=== PATIENT | female | born 1940 | race Caucasian/White ===

== ENCOUNTER 2016-10-03 16:08 | Inpatient (IN) | payer MEDICAID ==
[~2016-10-03 16:08] MED LIST: ACETAMINOPHEN650 MG PR; ALDACTONE25 M1 PO; ARTIFICIAL TEAR15 M8 OP; ATIVAN0.5 M1 PO; ATORVASTATIN CA40 M1 PO; ATORVASTATIN CA80 M1 PO; BISCOLAX10 MG PR; CALCITRATE + V1 EAC1 PO; CITRACAL + D E1 EAC1 PO; DEX4 GLUCOSE4 GM PO; DICLOFENAC SODI75 M2 PO; DILTIAZEM 24HR240 M3 PO; DIOVAN320 M1 PO; FEVERALL325 MG RC; FIBER-LAX625 M1 PO; FIBER625 M2 PO; FLEET ENEMA133 ML PR; FUROSEMIDE40 M2 PO; GAS RELIEF125 M4 PO; GLUCAGON HCL1 MG SC; HUMALOG MI SC; HUMALOG MI100 UNITS1 SC; HYDRALAZINE HCL50 M1 PO; ISOSORBIDE MONO20 M1 PO; K-TAB ER20 ME1 PO; LASIX40 M1 PO; LOPRESSOR100 M1 PO; MAALOX ADVANCE770 ML PO; MAALOX MAXIMUM355 M1 PO; MI ACID PO; MILK OF MAGNESIA PO; MIRALAX17 G2 PO; MUCINEX600 M1 PO; OLANZAPINE ODT15 MG PO; POLYETHYLENE G255 G1 PO; POTASSIUM CHLO20 ME3 PO; QUETIAPINE FUM100 M1 PO; QUETIAPINE FUM200 M1 PO; SENNA-DOCUSATE1 EAC1 PO; SENNA8.6 M3 PO; SEROQUEL100 M2 PO; SERTRALINE HCL100 M5 PO; TYLENOL325 M2 PO; ULTRAM50 M1 PO; XARELTO15 M1 PO; ZOLOFT100 M1 PO; ZYPREXA15 M1 PO
[2016-10-03] MEDS ORDERED: TYLENOL325 M2 PO ×2 (16:13→16:22)
[2016-10-03] MEDS ORDERED: ARTIFICIAL TEAR1512 OP (16:14)
[2016-10-03] MEDS ORDERED: LIPITOR80 M1 PO (16:14)
[2016-10-03] MEDS ORDERED: CALCITRATE + V1 EAC1 PO (16:14)
[2016-10-03] MEDS ORDERED: CARDIZEM CD240 M1 PO (16:15)
[2016-10-03] MEDS ORDERED: FIBER-LAX625 M1 PO (16:15)
[2016-10-03] MEDS ORDERED: HYDRALAZINE HCL50 M1 PO (16:16)
[2016-10-03] MEDS ORDERED: ISOSORBIDE MONO20 M1 PO (16:16)
[2016-10-03] MEDS ORDERED: LASIX40 M1 PO (16:16)
[2016-10-03] MEDS ORDERED: MILK OF MAGNESIA PO ×2 (16:17→16:28)
[2016-10-03] MEDS ORDERED: LOPRESSOR50 M1 PO (16:17)
[2016-10-03] MEDS ORDERED: POTASSIUM CHLO20 ME3 PO (16:18)
[2016-10-03] MEDS ORDERED: MACROBID 100 M100 M1 PO (16:18)
[2016-10-03] MEDS ORDERED: MIRALAX17 G2 PO (16:18)
[2016-10-03] MEDS ORDERED: QUETIAPINE FUM100 M1 PO (16:19)
[2016-10-03] MEDS ORDERED: ALDACTONE25 M1 PO (16:20)
[2016-10-03] MEDS ORDERED: SENNA-DOCUSATE1 EAC1 PO (16:20)
[2016-10-03] MEDS ORDERED: QUETIAPINE FUM200 M1 PO (16:20)
[2016-10-03] MEDS ORDERED: ULTRAM50 M1 PO (16:21)
[2016-10-03] MEDS ORDERED: VALSARTAN320 MG PO (16:21)
[2016-10-03] MEDS ORDERED: ATIVAN0.5 M1 PO (16:21)
[2016-10-03] MEDS ORDERED: XARELTO15 M1 PO (16:21)
[2016-10-03] MEDS ORDERED: ZYPREXA20 M1 PO (16:22)
[2016-10-03] MEDS ORDERED: ZOLOFT100 M1 PO (16:22)
[2016-10-03] MEDS ORDERED: DICLOFENAC SODI75 M2 PO (16:24)
[2016-10-03] MEDS ORDERED: GUAIFENESIN ER600 MG PO (16:26)
[2016-10-03] MEDS ORDERED: MI ACID PO (16:26)
[2016-10-03] MEDS ORDERED: MAALOX MAXIMUM355 M1 PO (16:27)
[2016-10-03] MEDS ORDERED: GLUCOSE4 GM CH ×2 (16:34→16:37)
[2016-10-03] MEDS ORDERED: HUMALOG MI100 UNIT/4 SC ×2 (16:37→16:38)
[2016-10-03] MEDS ORDERED: GLUCAGON HCL1 MG IM (16:39)
[2016-10-03] MEDS ORDERED: [UNRECOGNIZED DRUG - OTHER] TP (16:39)
[2016-10-03] MEDS ORDERED: FLEET ENEMA133 ML PR (16:40)
[2016-10-03] MEDS ORDERED: BISCOLAX10 MG PR (16:40)
[2016-10-03] MEDS ORDERED: ACETAMINOPHEN650 MG PR (16:40)
[2016-10-03 17:02] LABS: BASO % 0.2 % (0-2); IMMATURE GRANULOCYTES ABSOLUTE 0.03 tho/cmm (0-0.03); IMMATURE GRANULOCYTES PERCENT 0.5 % (0-0.3); INR 1.9 INR (0.9-1.1); LYMPH % 14.9 % (20-45); MCV (MEAN CELL VOLUME) 78.3 fl (82.0-96.0); MEAN PLATELET VOLUME 10.8 cmc (9.4-12.4); MONO % 8.6 % (0-12); MONOCYTE ABSOLUTE COUNT 0.6 tho/cmm (0.0-1.2); NEUTROPHIL ABSOLUTE COUNT 4.9 tho/cmm (1.6-8.0); NEUTROPHIL-AUTOMATED 4.9 tho/cmm (1.6-8.0); NEUTROPHILS % 75.8 % (40-80); PLATELET COUNT 167 tho/cmm (150-450); RED BLOOD COUNT 2.03 mil/cmm (4.00-5.20); RED CELL DISTRIBUTION WIDTH 17.8 % (12.4-16.4); WHITE BLOOD COUNT 6.5 tho/cmm (4.0-10.0)
[2016-10-03 17:05] LABS: MCH (MEAN CORPUSCULAR HGB) 23.6 pg (28.0-32.0); MCHC MEAN CORPUSCULAR HGB CONC 30.2 % (32.0-36.0)
[2016-10-03 17:13] LABS: HCT-HEMATOCRIT 15.9 % (34.0-49.0); HGB-HEMOGLOBIN 4.8 gm/dl (12.0-15.5)
[2016-10-03 17:19] LABS: ALB/GLOB RATIO 1.1 (0.8-2.0); ALBUMIN 3.1 g/dl (3.5-5.0); ALKALINE PHOSPHATASE 49 U/L (33-138); ALT/SGPT 21 U/L (12-78); ANION GAP 17 mmol/L (0-20); AST/SGOT 24 U/L (10-40); BILIRUBIN,TOTAL 0.3 mg/dl (0-1.5); BLOOD UREA NITROGEN 51 mg/dl (6-24); CALCIUM 8.6 mg/dl (8.5-10.5); CARBON DIOXIDE-VENOUS 25 mmol/L (22-32); CHLORIDE 99 mmol/l (96-110); CREATININE 1.69 mg/dl (0.50-1.10); GLUCOSE 197 mg/dL (70-110); LIPASE 164 U/L (73-393); MAGNESIUM 2.7 mg/dl (1.8-2.6); POTASSIUM 5.8 mmol/L (3.7-5.1); SODIUM 135 mmol/L (135-145); eGFR VALUE FOR BLACK 33 mL/Min
[2016-10-03 22:30] LABS: MCV (MEAN CELL VOLUME) 78.1 fl (82.0-96.0); RED CELL DISTRIBUTION WIDTH 16.9 % (12.4-16.4)
[2016-10-03 22:32] LABS: HCT-HEMATOCRIT 17.8 % (34.0-49.0); HGB-HEMOGLOBIN 5.6 gm/dl (12.0-15.5)
[2016-10-03 22:40] LABS: ANION GAP 14 mmol/L (0-20); BLOOD UREA NITROGEN 50 mg/dl (6-24); CALCIUM 8.3 mg/dl (8.5-10.5); CARBON DIOXIDE-VENOUS 26 mmol/L (22-32); CHLORIDE 100 mmol/l (96-110); CREATININE 1.45 mg/dl (0.50-1.10); GLUCOSE 215 mg/dL (70-110); SODIUM 135 mmol/L (135-145); eGFR VALUE FOR BLACK 40 mL/Min
[2016-10-03 22:43] LABS: POTASSIUM 4.6 mmol/L (3.7-5.1)
[2016-10-04 04:06] LABS: INR 1.6 INR (0.9-1.1); PROTHROMBIN TIME 18.7 SECONDS (9.0-13.6)
[2016-10-04 04:13] LABS: ANION GAP 13 mmol/L (0-20); BLOOD UREA NITROGEN 47 mg/dl (6-24); CARBON DIOXIDE-VENOUS 25 mmol/L (22-32); CHLORIDE 102 mmol/l (96-110); CREATININE 1.45 mg/dl (0.50-1.10); GLUCOSE 194 mg/dL (70-110); POTASSIUM 4.3 mmol/L (3.7-5.1); SODIUM 136 mmol/L (135-145); eGFR VALUE FOR BLACK 40 mL/Min
[2016-10-04 04:20] LABS: BASO % 0.2 % (0-2); HGB-HEMOGLOBIN 6.6 gm/dl (12.0-15.5); IMMATURE GRANULOCYTES ABSOLUTE 0.02 tho/cmm (0-0.03); IMMATURE GRANULOCYTES PERCENT 0.3 % (0-0.3); LYMPH % 16.9 % (20-45); LYMPH ABSOLUTE COUNT 1.1 tho/cmm (0.8-4.5); MCH (MEAN CORPUSCULAR HGB) 24.9 pg (28.0-32.0); MCV (MEAN CELL VOLUME) 78.1 fl (82.0-96.0); MEAN PLATELET VOLUME 10.6 cmc (9.4-12.4); MONO % 14.4 % (0-12); MONOCYTE ABSOLUTE COUNT 0.9 tho/cmm (0.0-1.2); NEUTROPHIL ABSOLUTE COUNT 4.4 tho/cmm (1.6-8.0); NEUTROPHIL-AUTOMATED 4.4 tho/cmm (1.6-8.0); NEUTROPHILS % 68.2 % (40-80); PLATELET COUNT 126 tho/cmm (150-450); RED BLOOD COUNT 2.65 mil/cmm (4.00-5.20); RED CELL DISTRIBUTION WIDTH 16.3 % (12.4-16.4); WHITE BLOOD COUNT 6.4 tho/cmm (4.0-10.0)
[2016-10-04 04:28] LABS: HCT-HEMATOCRIT 20.7 % (34.0-49.0); MCHC MEAN CORPUSCULAR HGB CONC 31.9 % (32.0-36.0)
[2016-10-04 15:48] LABS: HGB-HEMOGLOBIN 7.3 gm/dl (12.0-15.5); MCV (MEAN CELL VOLUME) 81.9 fl (82.0-96.0); RED CELL DISTRIBUTION WIDTH 17.6 % (12.4-16.4)
[2016-10-04 15:49] LABS: HCT-HEMATOCRIT 22.7 % (34.0-49.0)
--- NOTE | 2016-10-04 19:00 | NUR ---
0830 RESTLESS @ TIMES AND TRIES TO GET OUT OF BED, YELLS FOR HELP. Preston RALPH APRN HERE, ORDERS RECIEVED. PHYSICAL THERAPY HERE AND DANGLES/STANDS PATIENT. BACK TO BED. AM SCHEDULED ATIVAN AND SEROQUEL GIVEN. 0915 ENDOSCOPY AND ANESTHESIA HERE FOR EGD. PATIENT ANXIOUS AND AGITATED- CALMS WITH RE-ORIENTATION AND REDIRECTION. 0945 DR. AGEE HERE-EGD DONE UNDER MAC ANESTHESIA.TOLERATES PROCEDURE WELL WITH NO CHANGE IN VS. 1030 RESTLESS AND TRIES TO GET OUT OF BED. CALMS WITH BATH BEING GIVEN.DR. RILEY HERE, ORDERS RECIEVED. 1130 HAS BEEN DOSING FOR SHORT INTERVALS. AWAKE AND AGITATED, WANTS OUT OF BED. RESP. MORE LABORED WITH AGITATION. WON'T LEAVE O2 ON. UP TO CHAIR WITH 2 ASSIST. TAKES CLEAR LIQUIDS WELL. PRBC INFUSING. 1400 YELLING FOR HELP AND TRIES TO GET OUT OF CHAIR. BACK TO BED 1630 RESP. RATE INCREASED AND WORK OF BREATHING INCREASED WITH EXP. WHEEZE WITH AGITATION. INCREASING ANXIOUS AND AGITATION, UNABLE TO REORIENT FOR ANY LENGTH OF TIME. 1715 CALLED CONDITION UPDATE, COMES TO SEE PATIENT AND ORDERS RECIEVED. 1735 LASIX 20 MG IVP GIVEN AND RESP. THERAPY HERE TO DO AEROSOL. 1830 PATIENT INCREASING AGITATION/UNCOOPERATIVE. TRIES TO GET OUT OF BED AND YELLING. RESP. EFFORT INCREASED. DR. RILEY HERE AND ORDERS RECIEVED
[2016-10-04 22:10] LABS: ABG CO2 ARTERIAL 25 mmol/L (21-27); ARTERIAL BLD GAS O2 SATURATION 96 % (95-98); ARTERIAL BLOOD GAS PCO2 52 mmHg (32-45); ARTERIAL PO2 92 mmHg (70-100); BICARBONATE 23 mmol/L (21-28); BLOOD GAS BASE EXCESS -3 mM/L (-/+3); PH 7.27 Units (7.35-7.45)
[2016-10-04 22:19] LABS: MCV (MEAN CELL VOLUME) 82.7 fl (82.0-96.0); RED CELL DISTRIBUTION WIDTH 17.3 % (12.4-16.4)
[2016-10-04 22:29] LABS: HCT-HEMATOCRIT 29.2 % (34.0-49.0); HGB-HEMOGLOBIN 9.2 gm/dl (12.0-15.5)
[2016-10-05 00:22] LABS: ABG CO2 ARTERIAL 25 mmol/L (21-27); ARTERIAL BLD GAS O2 SATURATION 96 % (95-98); ARTERIAL BLOOD GAS PCO2 44 mmHg (32-45); ARTERIAL PO2 78 mmHg (70-100); BICARBONATE 24 mmol/L (21-28); BLOOD GAS BASE EXCESS -2 mM/L (-/+3); PH 7.34 Units (7.35-7.45)
[2016-10-05 05:03] LABS: BASO % 0.2 % (0-2); HCT-HEMATOCRIT 26.1 % (34.0-49.0); HGB-HEMOGLOBIN 8.3 gm/dl (12.0-15.5); IMMATURE GRANULOCYTES ABSOLUTE 0.02 tho/cmm (0-0.03); IMMATURE GRANULOCYTES PERCENT 0.4 % (0-0.3); LYMPH % 4.2 % (20-45); LYMPH ABSOLUTE COUNT 0.2 tho/cmm (0.8-4.5); MCH (MEAN CORPUSCULAR HGB) 25.9 pg (28.0-32.0); MCHC MEAN CORPUSCULAR HGB CONC 31.8 % (32.0-36.0); MCV (MEAN CELL VOLUME) 81.6 fl (82.0-96.0); MEAN PLATELET VOLUME 10.3 cmc (9.4-12.4); MONO % 6.2 % (0-12); MONOCYTE ABSOLUTE COUNT 0.3 tho/cmm (0.0-1.2); NEUTROPHIL ABSOLUTE COUNT 4.9 tho/cmm (1.6-8.0); NEUTROPHIL-AUTOMATED 4.9 tho/cmm (1.6-8.0); PLATELET COUNT 97 tho/cmm (150-450); RED CELL DISTRIBUTION WIDTH 17.2 % (12.4-16.4); WHITE BLOOD COUNT 5.5 tho/cmm (4.0-10.0)
[2016-10-05 05:22] LABS: ANION GAP 12 mmol/L (0-20); BLOOD UREA NITROGEN 27 mg/dl (6-24); CALCIUM 7.8 mg/dl (8.5-10.5); CARBON DIOXIDE-VENOUS 27 mmol/L (22-32); CHLORIDE 104 mmol/l (96-110); CREATININE 1.13 mg/dl (0.50-1.10); GLUCOSE 282 mg/dL (70-110); POTASSIUM 3.6 mmol/L (3.7-5.1); SODIUM 139 mmol/L (135-145); eGFR VALUE FOR BLACK 54 mL/Min
[2016-10-05 05:30] LABS: INR 1.3 INR (0.9-1.1); PROTHROMBIN TIME 15.6 SECONDS (9.0-13.6)
[2016-10-05 09:57] LABS: HCT-HEMATOCRIT 26.6 % (34.0-49.0); HGB-HEMOGLOBIN 8.5 gm/dl (12.0-15.5); IMMATURE GRANULOCYTES ABSOLUTE 0.03 tho/cmm (0-0.03); IMMATURE GRANULOCYTES PERCENT 0.6 % (0-0.3); LYMPH % 3.4 % (20-45); LYMPH ABSOLUTE COUNT 0.2 tho/cmm (0.8-4.5); MCH (MEAN CORPUSCULAR HGB) 26.2 pg (28.0-32.0); MCV (MEAN CELL VOLUME) 81.8 fl (82.0-96.0); MONO % 5.6 % (0-12); MONOCYTE ABSOLUTE COUNT 0.3 tho/cmm (0.0-1.2); NEUTROPHIL ABSOLUTE COUNT 4.8 tho/cmm (1.6-8.0); NEUTROPHIL-AUTOMATED 4.8 tho/cmm (1.6-8.0); NEUTROPHILS % 90.4 % (40-80); PLATELET COUNT 95 tho/cmm (150-450); RED BLOOD COUNT 3.25 mil/cmm (4.00-5.20); RED CELL DISTRIBUTION WIDTH 17.3 % (12.4-16.4); WHITE BLOOD COUNT 5.3 tho/cmm (4.0-10.0)
[2016-10-05 12:54] LABS: ALB/GLOB RATIO 1.1 (0.8-2.0); ALKALINE PHOSPHATASE 47 U/L (33-138); BILIRUBIN,TOTAL 0.4 mg/dl (0-1.5); BLOOD UREA NITROGEN 24 mg/dl (6-24); CALCIUM 7.8 mg/dl (8.5-10.5); CARBON DIOXIDE-VENOUS 26 mmol/L (22-32); CHLORIDE 105 mmol/l (96-110); CREATININE 1.08 mg/dl (0.50-1.10); GLUCOSE 264 mg/dL (70-110); POTASSIUM 3.8 mmol/L (3.7-5.1); eGFR VALUE FOR BLACK 57 mL/Min
[2016-10-05 13:02] LABS: ALT/SGPT 99 U/L (12-78); ANION GAP 14 mmol/L (0-20); AST/SGOT 60 U/L (10-40); SODIUM 141 mmol/L (135-145)
[2016-10-05 13:49] LABS: HCT-HEMATOCRIT 24.8 % (34.0-49.0); HGB-HEMOGLOBIN 7.7 gm/dl (12.0-15.5); MCV (MEAN CELL VOLUME) 83.8 fl (82.0-96.0)
[2016-10-06 04:43] LABS: INR 1.4 INR (0.9-1.1); PROTHROMBIN TIME 16.1 SECONDS (9.0-13.6)
[2016-10-06 04:45] LABS: EOS % 0.2 % (0-7); HCT-HEMATOCRIT 26.7 % (34.0-49.0); HGB-HEMOGLOBIN 8.5 gm/dl (12.0-15.5); IMMATURE GRANULOCYTES ABSOLUTE 0.02 tho/cmm (0-0.03); IMMATURE GRANULOCYTES PERCENT 0.4 % (0-0.3); LYMPH % 4.3 % (20-45); LYMPH ABSOLUTE COUNT 0.2 tho/cmm (0.8-4.5); MCH (MEAN CORPUSCULAR HGB) 25.8 pg (28.0-32.0); MCHC MEAN CORPUSCULAR HGB CONC 31.8 % (32.0-36.0); MCV (MEAN CELL VOLUME) 80.9 fl (82.0-96.0); MEAN PLATELET VOLUME 10.1 cmc (9.4-12.4); MONOCYTE ABSOLUTE COUNT 0.4 tho/cmm (0.0-1.2); NEUTROPHIL ABSOLUTE COUNT 4.7 tho/cmm (1.6-8.0); NEUTROPHIL-AUTOMATED 4.7 tho/cmm (1.6-8.0); NEUTROPHILS % 88.1 % (40-80); PLATELET COUNT 85 tho/cmm (150-450); RED CELL DISTRIBUTION WIDTH 16.9 % (12.4-16.4); WHITE BLOOD COUNT 5.3 tho/cmm (4.0-10.0)
[2016-10-06 04:55] LABS: ALBUMIN 2.8 g/dl (3.5-5.0); ALKALINE PHOSPHATASE 44 U/L (33-138); ALT/SGPT 88 U/L (12-78); ANION GAP 12 mmol/L (0-20); AST/SGOT 39 U/L (10-40); BILIRUBIN,TOTAL 0.6 mg/dl (0-1.5); BLOOD UREA NITROGEN 22 mg/dl (6-24); CALCIUM 8.1 mg/dl (8.5-10.5); CARBON DIOXIDE-VENOUS 26 mmol/L (22-32); CHLORIDE 106 mmol/l (96-110); CREATININE 1.11 mg/dl (0.50-1.10); GLUCOSE 158 mg/dL (70-110); MAGNESIUM 1.9 mg/dl (1.8-2.6); POTASSIUM 3.3 mmol/L (3.7-5.1); SODIUM 141 mmol/L (135-145); TRIGLYCERIDES 57 mg/dl (<149); eGFR VALUE FOR BLACK 55 mL/Min
[2016-10-06 05:51] LABS: ABG CO2 ARTERIAL 21 mmol/L (21-27); ARTERIAL BLD GAS O2 SATURATION 90 % (95-98); BICARBONATE 22 mmol/L (21-28); BLOOD GAS BASE EXCESS 2 mM/L (-/+3)
[2016-10-06 05:52] LABS: ARTERIAL BLOOD GAS PCO2 22 mmHg (32-45); ARTERIAL PO2 46 mmHg (70-100); PH 7.62 Units (7.35-7.45)
[2016-10-06 08:31] LABS: ARTERIAL BLD GAS O2 SATURATION 93 % (95-98); BICARBONATE 25 mmol/L (21-28); BLOOD GAS BASE EXCESS 2 mM/L (-/+3)
[2016-10-06 08:35] LABS: ABG CO2 ARTERIAL 27 mmol/L (21-27); ARTERIAL BLOOD GAS PCO2 35 mmHg (32-45); ARTERIAL PO2 62 mmHg (70-100); PH 7.48 Units (7.35-7.45)
--- NOTE | 2016-10-06 23:03 | NUR ---
RT WAS NOTIFIED BY RN THAT THE PT HAD SELF EXTUBATED. PT PLACED ON 3L NC WITH SPO2 97%. RN IS NOTIFYING PULM MD AND WILL DECIDE IF SHE NEEDS TO BE REINTUBATED.
[2016-10-07 04:16] LABS: INR 1.4 INR (0.9-1.1)
[2016-10-07 04:28] LABS: HCT-HEMATOCRIT 27.8 % (34.0-49.0); HGB-HEMOGLOBIN 8.8 gm/dl (12.0-15.5); IMMATURE GRANULOCYTES ABSOLUTE 0.02 tho/cmm (0-0.03); IMMATURE GRANULOCYTES PERCENT 0.3 % (0-0.3); LYMPH % 3.4 % (20-45); LYMPH ABSOLUTE COUNT 0.2 tho/cmm (0.8-4.5); MCH (MEAN CORPUSCULAR HGB) 25.8 pg (28.0-32.0); MCHC MEAN CORPUSCULAR HGB CONC 31.7 % (32.0-36.0); MCV (MEAN CELL VOLUME) 81.5 fl (82.0-96.0); MEAN PLATELET VOLUME 11.5 cmc (9.4-12.4); MONO % 9.6 % (0-12); MONOCYTE ABSOLUTE COUNT 0.7 tho/cmm (0.0-1.2); NEUTROPHIL ABSOLUTE COUNT 5.8 tho/cmm (1.6-8.0); NEUTROPHIL-AUTOMATED 5.8 tho/cmm (1.6-8.0); NEUTROPHILS % 86.7 % (40-80); PLATELET COUNT 89 tho/cmm (150-450); RED BLOOD COUNT 3.41 mil/cmm (4.00-5.20); RED CELL DISTRIBUTION WIDTH 17.3 % (12.4-16.4); WHITE BLOOD COUNT 6.7 tho/cmm (4.0-10.0)
[2016-10-07 04:29] LABS: ALB/GLOB RATIO 0.9 (0.8-2.0); ALBUMIN 2.5 g/dl (3.5-5.0); ALKALINE PHOSPHATASE 43 U/L (33-138); ALT/SGPT 71 U/L (12-78); ANION GAP 11 mmol/L (0-20); AST/SGOT 21 U/L (10-40); BILIRUBIN,TOTAL 0.5 mg/dl (0-1.5); BLOOD UREA NITROGEN 27 mg/dl (6-24); CARBON DIOXIDE-VENOUS 27 mmol/L (22-32); CHLORIDE 108 mmol/l (96-110); CREATININE 1.12 mg/dl (0.50-1.10); GLUCOSE 95 mg/dL (70-110); MAGNESIUM 1.9 mg/dl (1.8-2.6); PHOSPHOROUS 2.9 mg/dl (2.5-4.9); POTASSIUM 3.9 mmol/L (3.7-5.1); SODIUM 142 mmol/L (135-145); eGFR VALUE FOR BLACK 54 mL/Min
[2016-10-07 04:42] LABS: ABG CO2 ARTERIAL 27 mmol/L (21-27); ARTERIAL BLD GAS O2 SATURATION 92 % (95-98); ARTERIAL BLOOD GAS PCO2 38 mmHg (32-45); ARTERIAL PO2 61 mmHg (70-100); BICARBONATE 26 mmol/L (21-28); BLOOD GAS BASE EXCESS 2 mM/L (-/+3); PH 7.44 Units (7.35-7.45)
[2016-10-08 04:22] LABS: BASO % 0.1 % (0-2); HCT-HEMATOCRIT 30.1 % (34.0-49.0); HGB-HEMOGLOBIN 9.4 gm/dl (12.0-15.5); IMMATURE GRANULOCYTES ABSOLUTE 0.03 tho/cmm (0-0.03); IMMATURE GRANULOCYTES PERCENT 0.4 % (0-0.3); LYMPH % 6.8 % (20-45); LYMPH ABSOLUTE COUNT 0.6 tho/cmm (0.8-4.5); MCH (MEAN CORPUSCULAR HGB) 25.5 pg (28.0-32.0); MCHC MEAN CORPUSCULAR HGB CONC 31.2 % (32.0-36.0); MCV (MEAN CELL VOLUME) 81.8 fl (82.0-96.0); MEAN PLATELET VOLUME 11.2 cmc (9.4-12.4); MONO % 7.2 % (0-12); MONOCYTE ABSOLUTE COUNT 0.6 tho/cmm (0.0-1.2); NEUTROPHIL ABSOLUTE COUNT 7.3 tho/cmm (1.6-8.0); NEUTROPHIL-AUTOMATED 7.3 tho/cmm (1.6-8.0); NEUTROPHILS % 85.5 % (40-80); PLATELET COUNT 106 tho/cmm (150-450); RED BLOOD COUNT 3.68 mil/cmm (4.00-5.20); RED CELL DISTRIBUTION WIDTH 17.5 % (12.4-16.4); WHITE BLOOD COUNT 8.5 tho/cmm (4.0-10.0)
[2016-10-08 04:51] LABS: ANION GAP 16 mmol/L (0-20); BLOOD UREA NITROGEN 34 mg/dl (6-24); CALCIUM 8.2 mg/dl (8.5-10.5); CARBON DIOXIDE-VENOUS 26 mmol/L (22-32); CHLORIDE 107 mmol/l (96-110); CREATININE 1.23 mg/dl (0.50-1.10); POTASSIUM 3.7 mmol/L (3.7-5.1); SODIUM 145 mmol/L (135-145); eGFR VALUE FOR BLACK 49 mL/Min
[2016-10-08 05:26] LABS: GLUCOSE 147 mg/dL (70-110)
[2016-10-09 03:50] LABS: BASO % 0.1 % (0-2); HCT-HEMATOCRIT 32.2 % (34.0-49.0); HGB-HEMOGLOBIN 9.9 gm/dl (12.0-15.5); IMMATURE GRANULOCYTES ABSOLUTE 0.09 tho/cmm (0-0.03); IMMATURE GRANULOCYTES PERCENT 0.7 % (0-0.3); LYMPH % 11.6 % (20-45); LYMPH ABSOLUTE COUNT 1.5 tho/cmm (0.8-4.5); MCH (MEAN CORPUSCULAR HGB) 25.3 pg (28.0-32.0); MCHC MEAN CORPUSCULAR HGB CONC 30.7 % (32.0-36.0); MCV (MEAN CELL VOLUME) 82.4 fl (82.0-96.0); MONO % 10.2 % (0-12); MONOCYTE ABSOLUTE COUNT 1.3 tho/cmm (0.0-1.2); NEUTROPHIL ABSOLUTE COUNT 9.7 tho/cmm (1.6-8.0); NEUTROPHIL-AUTOMATED 9.7 tho/cmm (1.6-8.0); NEUTROPHILS % 77.4 % (40-80); PLATELET COUNT 136 tho/cmm (150-450); RED BLOOD COUNT 3.91 mil/cmm (4.00-5.20); RED CELL DISTRIBUTION WIDTH 17.5 % (12.4-16.4); WHITE BLOOD COUNT 12.6 tho/cmm (4.0-10.0)
[2016-10-09 04:09] LABS: ANION GAP 12 mmol/L (0-20); BLOOD UREA NITROGEN 29 mg/dl (6-24); CALCIUM 8.4 mg/dl (8.5-10.5); CARBON DIOXIDE-VENOUS 30 mmol/L (22-32); CHLORIDE 109 mmol/l (96-110); CREATININE 0.91 mg/dl (0.50-1.10); GLUCOSE 82 mg/dL (70-110); MAGNESIUM 2.1 mg/dl (1.8-2.6); POTASSIUM 3.7 mmol/L (3.7-5.1); SODIUM 147 mmol/L (135-145); eGFR VALUE FOR BLACK 70 mL/Min
[2016-10-10 04:12] LABS: HCT-HEMATOCRIT 30.5 % (34.0-49.0); HGB-HEMOGLOBIN 9.4 gm/dl (12.0-15.5); IMMATURE GRANULOCYTES ABSOLUTE 0.08 tho/cmm (0-0.03); IMMATURE GRANULOCYTES PERCENT 0.6 % (0-0.3); LYMPH % 9.9 % (20-45); LYMPH ABSOLUTE COUNT 1.4 tho/cmm (0.8-4.5); MCH (MEAN CORPUSCULAR HGB) 25.2 pg (28.0-32.0); MCHC MEAN CORPUSCULAR HGB CONC 30.8 % (32.0-36.0); MCV (MEAN CELL VOLUME) 81.8 fl (82.0-96.0); MEAN PLATELET VOLUME 11.2 cmc (9.4-12.4); MONO % 13.2 % (0-12); MONOCYTE ABSOLUTE COUNT 1.8 tho/cmm (0.0-1.2); NEUTROPHIL ABSOLUTE COUNT 10.6 tho/cmm (1.6-8.0); NEUTROPHIL-AUTOMATED 10.6 tho/cmm (1.6-8.0); NEUTROPHILS % 76.3 % (40-80); PLATELET COUNT 138 tho/cmm (150-450); RED BLOOD COUNT 3.73 mil/cmm (4.00-5.20); RED CELL DISTRIBUTION WIDTH 17.1 % (12.4-16.4); WHITE BLOOD COUNT 13.9 tho/cmm (4.0-10.0)
[2016-10-10 04:21] LABS: ANION GAP 10 mmol/L (0-20); BLOOD UREA NITROGEN 22 mg/dl (6-24); CALCIUM 8.1 mg/dl (8.5-10.5); CARBON DIOXIDE-VENOUS 32 mmol/L (22-32); CHLORIDE 101 mmol/l (96-110); CREATININE 0.96 mg/dl (0.50-1.10); MAGNESIUM 1.9 mg/dl (1.8-2.6); POTASSIUM 3.2 mmol/L (3.7-5.1); SODIUM 140 mmol/L (135-145); eGFR VALUE FOR BLACK 66 mL/Min
[2016-10-10 04:42] LABS: GLUCOSE 171 mg/dL (70-110)
[2016-10-11 05:26] LABS: HCT-HEMATOCRIT 27.9 % (34.0-49.0); HGB-HEMOGLOBIN 8.5 gm/dl (12.0-15.5); IMMATURE GRANULOCYTES ABSOLUTE 0.05 tho/cmm (0-0.03); IMMATURE GRANULOCYTES PERCENT 0.7 % (0-0.3); LYMPH % 20.6 % (20-45); LYMPH ABSOLUTE COUNT 1.4 tho/cmm (0.8-4.5); MCH (MEAN CORPUSCULAR HGB) 25.1 pg (28.0-32.0); MCHC MEAN CORPUSCULAR HGB CONC 30.5 % (32.0-36.0); MCV (MEAN CELL VOLUME) 82.3 fl (82.0-96.0); MEAN PLATELET VOLUME 11.3 cmc (9.4-12.4); MONO % 12.2 % (0-12); MONOCYTE ABSOLUTE COUNT 0.9 tho/cmm (0.0-1.2); NEUTROPHIL ABSOLUTE COUNT 4.7 tho/cmm (1.6-8.0); NEUTROPHIL-AUTOMATED 4.7 tho/cmm (1.6-8.0); NEUTROPHILS % 66.5 % (40-80); PLATELET COUNT 102 tho/cmm (150-450); RED BLOOD COUNT 3.39 mil/cmm (4.00-5.20); RED CELL DISTRIBUTION WIDTH 16.9 % (12.4-16.4)
[2016-10-11 05:43] LABS: ANION GAP 7 mmol/L (0-20); BLOOD UREA NITROGEN 16 mg/dl (6-24); CALCIUM 7.7 mg/dl (8.5-10.5); CARBON DIOXIDE-VENOUS 34 mmol/L (22-32); CHLORIDE 101 mmol/l (96-110); CREATININE 0.83 mg/dl (0.50-1.10); GLUCOSE 185 mg/dL (70-110); MAGNESIUM 1.9 mg/dl (1.8-2.6); SODIUM 139 mmol/L (135-145); eGFR VALUE FOR BLACK 78 mL/Min
[2016-10-11 05:46] LABS: POTASSIUM 2.9 mmol/L (3.7-5.1)
[2016-10-11 18:02] LABS: ANION GAP 11 mmol/L (0-20); BLOOD UREA NITROGEN 14 mg/dl (6-24); CALCIUM 8.1 mg/dl (8.5-10.5); CARBON DIOXIDE-VENOUS 31 mmol/L (22-32); CHLORIDE 103 mmol/l (96-110); CREATININE 0.82 mg/dl (0.50-1.10); GLUCOSE 166 mg/dL (70-110); SODIUM 141 mmol/L (135-145); eGFR VALUE FOR BLACK 79 mL/Min
[2016-10-12 05:36] LABS: ANION GAP 10 mmol/L (0-20); BLOOD UREA NITROGEN 12 mg/dl (6-24); CALCIUM 7.9 mg/dl (8.5-10.5); CARBON DIOXIDE-VENOUS 31 mmol/L (22-32); CHLORIDE 103 mmol/l (96-110); CREATININE 0.75 mg/dl (0.50-1.10); GLUCOSE 120 mg/dL (70-110); POTASSIUM 3.7 mmol/L (3.7-5.1); SODIUM 140 mmol/L (135-145); eGFR VALUE FOR BLACK 88 mL/Min
[2016-10-12 05:45] LABS: BASO % 0.1 % (0-2); HCT-HEMATOCRIT 28.4 % (34.0-49.0); HGB-HEMOGLOBIN 8.8 gm/dl (12.0-15.5); IMMATURE GRANULOCYTES ABSOLUTE 0.07 tho/cmm (0-0.03); IMMATURE GRANULOCYTES PERCENT 0.8 % (0-0.3); LYMPH % 13.5 % (20-45); LYMPH ABSOLUTE COUNT 1.2 tho/cmm (0.8-4.5); MCV (MEAN CELL VOLUME) 80.7 fl (82.0-96.0); MONO % 13.8 % (0-12); MONOCYTE ABSOLUTE COUNT 1.2 tho/cmm (0.0-1.2); NEUTROPHIL ABSOLUTE COUNT 6.2 tho/cmm (1.6-8.0); NEUTROPHIL-AUTOMATED 6.2 tho/cmm (1.6-8.0); NEUTROPHILS % 71.8 % (40-80); PLATELET COUNT 83 tho/cmm (150-450); RED BLOOD COUNT 3.52 mil/cmm (4.00-5.20); RED CELL DISTRIBUTION WIDTH 16.7 % (12.4-16.4); WHITE BLOOD COUNT 8.7 tho/cmm (4.0-10.0)
[2016-10-13 09:21] LABS: ABG CO2 ARTERIAL 29 mmol/L (21-27); ARTERIAL BLD GAS O2 SATURATION 92 % (95-98); ARTERIAL BLOOD GAS PCO2 40 mmHg (32-45); ARTERIAL PO2 62 mmHg (70-100); BICARBONATE 27 mmol/L (21-28); BLOOD GAS BASE EXCESS 4 mM/L (-/+3); PH 7.45 Units (7.35-7.45)
[2016-10-14 04:27] LABS: BASO % 0.1 % (0-2); IMMATURE GRANULOCYTES ABSOLUTE 0.05 tho/cmm (0-0.03); IMMATURE GRANULOCYTES PERCENT 0.6 % (0-0.3); LYMPH % 13.6 % (20-45); LYMPH ABSOLUTE COUNT 1.1 tho/cmm (0.8-4.5); MCH (MEAN CORPUSCULAR HGB) 24.9 pg (28.0-32.0); MCHC MEAN CORPUSCULAR HGB CONC 30.8 % (32.0-36.0); MEAN PLATELET VOLUME 10.9 cmc (9.4-12.4); MONO % 16.2 % (0-12); MONOCYTE ABSOLUTE COUNT 1.3 tho/cmm (0.0-1.2); NEUTROPHIL ABSOLUTE COUNT 5.4 tho/cmm (1.6-8.0); NEUTROPHIL-AUTOMATED 5.4 tho/cmm (1.6-8.0); NEUTROPHILS % 69.5 % (40-80); PLATELET COUNT 96 tho/cmm (150-450); RED BLOOD COUNT 3.21 mil/cmm (4.00-5.20); RED CELL DISTRIBUTION WIDTH 17.4 % (12.4-16.4); WHITE BLOOD COUNT 7.8 tho/cmm (4.0-10.0)
[2016-10-14 04:36] LABS: ANION GAP 11 mmol/L (0-20); BLOOD UREA NITROGEN 13 mg/dl (6-24); CALCIUM 7.7 mg/dl (8.5-10.5); CARBON DIOXIDE-VENOUS 28 mmol/L (22-32); CHLORIDE 103 mmol/l (96-110); CREATININE 0.86 mg/dl (0.50-1.10); POTASSIUM 3.9 mmol/L (3.7-5.1); SODIUM 138 mmol/L (135-145); eGFR VALUE FOR BLACK 75 mL/Min
[2016-10-14 04:58] LABS: GLUCOSE 231 mg/dL (70-110)
[2016-10-14] MEDS ORDERED: AMIODARONE HCL200 M1 PO (11:31)
[2016-10-14] MEDS ORDERED: PROTONIX40 M2 PO (11:53)
[2016-10-14] MEDS ORDERED: NOVOLOG100 UNITS/ SC (11:54)
[2016-10-14] MEDS ORDERED: LEVEMIR100 UNITS/ SC (14:01)
== END 2016-10-14 13:10 | DRG 377 ==
LOC: EDMED 16:08 → EMR2 19:02 → CCU 19:45 → PCUA 10-10 16:08
PROVIDERS: Emergency Medicine; Internal Medicine; Internal Medicine Gastroenterology; Internal Medicine Pulmonary Disease; Specialist; ADMIT Hospitalist
PROC: 30243N1 Transfusion of Nonautologous Red Blood Cells into Central Vein, Percutaneous Approach (ICD-10-PCS; 2016-10-03)
PROC: 05H633Z Insertion of Infusion Device into Left Subclavian Vein, Percutaneous Approach (ICD-10-PCS; 2016-10-03)
PROC: 0W3P8ZZ Control Bleeding in Gastrointestinal Tract, Via Natural or Artificial Opening Endoscopic (ICD-10-PCS; principal; 2016-10-04)
PROC: 5A1945Z Respiratory Ventilation, 24-96 Consecutive Hours (ICD-10-PCS; 2016-10-04)
PROC: 0BH17EZ Insertion of Endotracheal Airway into Trachea, Via Natural or Artificial Opening (ICD-10-PCS; 2016-10-04)
DX: K25.4 Chronic or unspecified gastric ulcer with hemorrhage (principal); R57.1 Hypovolemic shock; J96.01 Acute respiratory failure with hypoxia; N17.9 Acute kidney failure, unspecified; J18.9 Pneumonia, unspecified organism; I13.0 Hypertensive heart and chronic kidney disease with heart failure and stage 1 through stage 4 chronic kidney disease, or unspecified chronic kidney disease; I50.9 Heart failure, unspecified; E11.22 Type 2 diabetes mellitus with diabetic chronic kidney disease; I27.2 Other secondary pulmonary hypertension; E11.65 Type 2 diabetes mellitus with hyperglycemia; E83.51 Hypocalcemia; D62 Acute posthemorrhagic anemia; F20.0 Paranoid schizophrenia; J44.9 Chronic obstructive pulmonary disease, unspecified; K59.09 Other constipation; I25.10 Atherosclerotic heart disease of native coronary artery without angina pectoris; Z79.01 Long term (current) use of anticoagulants; J70.4 Drug-induced interstitial lung disorders, unspecified; T45.8X5A Adverse effect of other primarily systemic and hematological agents, initial encounter; Z79.4 Long term (current) use of insulin; F32.9 Major depressive disorder, single episode, unspecified; F41.9 Anxiety disorder, unspecified; M19.90 Unspecified osteoarthritis, unspecified site; E78.5 Hyperlipidemia, unspecified; I48.2 Chronic atrial fibrillation; N18.3 Chronic kidney disease, stage 3 (moderate); G30.9 Alzheimer's disease, unspecified; F02.80 Dementia in other diseases classified elsewhere, unspecified severity, without behavioral disturbance, psychotic disturbance, mood disturbance, and anxiety; G47.00 Insomnia, unspecified; E87.6 Hypokalemia; K76.1 Chronic passive congestion of liver
CPT/HCPCS: C1751; C9113; C9132; J0282; J1160; J1200; J1630; J1815; J1940; J1956; J2060; J2250; J2405; J2543; J2704; J2920; J2997; J3010; J3370; J3480; J7030; J7040; J7050; P9016; P9047

== ENCOUNTER 2016-10-18 12:17 | Emergency (ER) | payer MEDICAID ==
[~2016-10-18 12:17] MED LIST changes: +AMIODARONE HCL200 M1 PO; +ARTIFICIAL TEAR1512 OP; +CARDIZEM CD240 M1 PO; +GLUCAGON HCL1 MG IM; +GLUCOSE4 GM CH; +GUAIFENESIN ER600 MG PO; +HUMALOG MI100 UNIT/4 SC; +LEVEMIR100 UNITS/ SC; +LIPITOR80 M1 PO; +LOPRESSOR50 M1 PO; +MACROBID 100 M100 M1 PO; +NOVOLOG100 UNITS/ SC; +PROTONIX40 M2 PO; +VALSARTAN320 MG PO; +ZYPREXA20 M1 PO; +[UNRECOGNIZED DRUG - OTHER] TP
[2016-10-18] MEDS ORDERED: AMIODARONE HCL200 M1 PO (12:30)
[2016-10-18] MEDS ORDERED: XARELTO15 M1 PO (12:30)
[2016-10-18] MEDS ORDERED: LIPITOR40 M1 PO (12:30)
[2016-10-18] MEDS ORDERED: ISOSORBIDE MONO20 M1 PO (12:31)
[2016-10-18] MEDS ORDERED: LOPRESSOR50 M1 PO (12:31)
[2016-10-18] MEDS ORDERED: DILTIAZEM ER240 M6 PO (12:31)
[2016-10-18] MEDS ORDERED: ACETAMINOPHEN650 MG PR (12:32)
[2016-10-18] MEDS ORDERED: OLANZAPINE20 M1 PO (12:32)
[2016-10-18] MEDS ORDERED: SERTRALINE HCL100 M5 PO (12:32)
[2016-10-18] MEDS ORDERED: SEROQUEL200 M2 PO (12:32)
[2016-10-18] MEDS ORDERED: POTASSIUM CHLO20 ME3 PO (12:33)
[2016-10-18] MEDS ORDERED: CALCITRATE + V1 EAC1 PO (12:33)
[2016-10-18] MEDS ORDERED: DEX4 GLUCOSE4 GM CH ×2 (12:34→12:35)
[2016-10-18] MEDS ORDERED: LASIX40 M1 PO (12:35)
[2016-10-18] MEDS ORDERED: MAALOX MAXIMUM355 M1 PO (12:35)
[2016-10-18] MEDS ORDERED: ARTIFICIAL TEAR1512 OP (12:35)
[2016-10-18] MEDS ORDERED: SPIRONOLACTONE25 M2 PO (12:35)
[2016-10-18] MEDS ORDERED: FIBER-LAX625 M1 PO (12:36)
[2016-10-18] MEDS ORDERED: MI ACID PO (12:36)
[2016-10-18] MEDS ORDERED: MILK OF MAGNESIA PO (12:36)
[2016-10-18] MEDS ORDERED: SENNA-DOCUSATE1 EAC1 PO (12:37)
[2016-10-18] MEDS ORDERED: FLEET ENEMA133 ML PR (12:37)
[2016-10-18] MEDS ORDERED: BISAC-EVAC10 MG PR (12:37)
[2016-10-18] MEDS ORDERED: POLYETHYLENE GL17 G1 PO (12:37)
[2016-10-18] MEDS ORDERED: PROTONIX40 M2 PO (12:38)
[2016-10-18] MEDS ORDERED: GLUCAGON HCL1 MG IM (12:38)
[2016-10-18] MEDS ORDERED: TYLENOL325 M2 PO ×2 (12:39)
[2016-10-18] MEDS ORDERED: [UNRECOGNIZED DRUG - OTHER] TP (12:39)
[2016-10-18] MEDS ORDERED: SEROQUEL50 M1 PO (12:40)
[2016-10-18] MEDS ORDERED: LEVAQUIN500 M1 PO (12:40)
[2016-10-18] MEDS ORDERED: ULTRAM50 M1 PO (12:41)
[2016-10-18] MEDS ORDERED: HUMALOG MI100 UNIT/4 SC ×2 (12:41)
[2016-10-18] MEDS ORDERED: ATIVAN0.5 M1 PO ×2 (12:42)
[2016-10-18 13:03] LABS: BASO % 0.4 % (0-2); HCT-HEMATOCRIT 26.9 % (34.0-49.0); HGB-HEMOGLOBIN 8.3 gm/dl (12.0-15.5); IMMATURE GRANULOCYTES ABSOLUTE 0.06 tho/cmm (0-0.03); IMMATURE GRANULOCYTES PERCENT 0.7 % (0-0.3); LYMPH ABSOLUTE COUNT 0.6 tho/cmm (0.8-4.5); MCH (MEAN CORPUSCULAR HGB) 25.2 pg (28.0-32.0); MCHC MEAN CORPUSCULAR HGB CONC 30.9 % (32.0-36.0); MCV (MEAN CELL VOLUME) 81.5 fl (82.0-96.0); MEAN PLATELET VOLUME 10.7 cmc (9.4-12.4); MONO % 8.3 % (0-12); MONOCYTE ABSOLUTE COUNT 0.7 tho/cmm (0.0-1.2); NEUTROPHIL ABSOLUTE COUNT 6.9 tho/cmm (1.6-8.0); NEUTROPHIL-AUTOMATED 6.9 tho/cmm (1.6-8.0); NEUTROPHILS % 83.6 % (40-80); PLATELET COUNT 130 tho/cmm (150-450); RED CELL DISTRIBUTION WIDTH 17.8 % (12.4-16.4); WHITE BLOOD COUNT 8.2 tho/cmm (4.0-10.0)
[2016-10-18 13:05] LABS: INR 2.1 INR (0.9-1.1); PROTHROMBIN TIME 24.5 SECONDS (9.0-13.6)
[2016-10-18 13:07] LABS: URINE BILIRUBIN NEGATIVE (NEG); URINE BLOOD MODERATE (NEG); URINE GLUCOSE (UA) NEGATIVE (NEG); URINE KETONE NEGATIVE (NEG); URINE LEUKOCYTE ESTERASE POSITIVE (NEG); URINE NITRITE POSITIVE (NEG); URINE PROTEIN SMALL (NEG); URINE SPECIFIC GRAVITY 1.005 (1.003-1.030)
[2016-10-18 13:08] LABS: URINE APPEARANCE HAZY; URINE COLOR YELLOW
[2016-10-18 13:12] LABS: ANION GAP 12 mmol/L (0-20); BLOOD UREA NITROGEN 21 mg/dl (6-24); CALCIUM 8.9 mg/dl (8.5-10.5); CARBON DIOXIDE-VENOUS 28 mmol/L (22-32); CHLORIDE 104 mmol/l (96-110); CREATININE 1.26 mg/dl (0.50-1.10); GLUCOSE 142 mg/dL (70-110); POTASSIUM 4.5 mmol/L (3.7-5.1); SODIUM 139 mmol/L (135-145); eGFR VALUE FOR BLACK 47 mL/Min
[2016-10-18 13:13] LABS: URINE BACTERIA 3+; URINE RBC 0 /[HPF] (0-5); URINE WBC 45-50 /[HPF] (0-5)
[2016-10-18 13:24] LABS: IRON 20 ug/dl (37-170); IRON BINDING CAPACITY 270 ug/dl (250-450)
== END 2016-10-18 15:00 ==
LOC: EDMED 12:17
PROVIDERS: Emergency Medicine
DX: N39.0 Urinary tract infection, site not specified (principal); R19.7 Diarrhea, unspecified; D64.9 Anemia, unspecified; I50.9 Heart failure, unspecified; I48.91 Unspecified atrial fibrillation; J44.9 Chronic obstructive pulmonary disease, unspecified; Z79.899 Other long term (current) drug therapy; Z87.891 Personal history of nicotine dependence
CPT/HCPCS: J0696; J7030

== ENCOUNTER 2016-11-08 13:47 | Inpatient (IN) | payer MEDICAID ==
[~2016-11-08 13:47] MED LIST changes: +BISAC-EVAC10 MG PR; +DEX4 GLUCOSE4 GM CH; +DILTIAZEM ER240 M6 PO; +LEVAQUIN500 M1 PO; +LIPITOR40 M1 PO; +OLANZAPINE20 M1 PO; +POLYETHYLENE GL17 G1 PO; +SEROQUEL200 M2 PO; +SEROQUEL50 M1 PO; +SPIRONOLACTONE25 M2 PO
[2016-11-08] MEDS ORDERED: AMIODARONE HCL200 M1 PO (14:02)
[2016-11-08] MEDS ORDERED: TYLENOL325 M2 PO (14:02)
[2016-11-08] MEDS ORDERED: ARTIFICIAL TEAR1512 OP (14:02)
[2016-11-08] MEDS ORDERED: LIPITOR40 M1 PO (14:02)
[2016-11-08] MEDS ORDERED: CALCITRATE + V1 EAC1 PO (14:03)
[2016-11-08] MEDS ORDERED: DILTIAZEM ER240 M5 PO (14:04)
[2016-11-08] MEDS ORDERED: FIBER-LAX625 M1 PO (14:04)
[2016-11-08] MEDS ORDERED: ISOSORBIDE MONO20 M1 PO (14:05)
[2016-11-08] MEDS ORDERED: LOPRESSOR50 M1 PO (14:05)
[2016-11-08] MEDS ORDERED: LASIX40 M1 PO (14:05)
[2016-11-08] MEDS ORDERED: PROTONIX40 M2 PO (14:06)
[2016-11-08] MEDS ORDERED: SEROQUEL200 M2 PO (14:06)
[2016-11-08] MEDS ORDERED: OLANZAPINE20 M1 PO (14:06)
[2016-11-08] MEDS ORDERED: POTASSIUM CHLO20 ME3 PO (14:06)
[2016-11-08] MEDS ORDERED: ALDACTONE25 M1 PO (14:07)
[2016-11-08] MEDS ORDERED: SEROQUEL50 M1 PO (14:07)
[2016-11-08] MEDS ORDERED: SENNA-DOCUSATE1 EAC1 PO (14:07)
[2016-11-08] MEDS ORDERED: ZOLOFT100 M1 PO (14:07)
[2016-11-08] MEDS ORDERED: ATIVAN0.5 M1 PO ×2 (14:08)
[2016-11-08] MEDS ORDERED: XARELTO15 M1 PO (14:08)
[2016-11-08] MEDS ORDERED: ULTRAM50 M1 PO (14:08)
[2016-11-08] MEDS ORDERED: MIRALAX17 G2 PO ×2 (14:09→14:11)
[2016-11-08] MEDS ORDERED: MILK OF MAGNESIA PO ×2 (14:09→14:11)
[2016-11-08] MEDS ORDERED: MULTIVITAMINS1 EAC3 PO (14:10)
[2016-11-08] MEDS ORDERED: MI ACID PO (14:10)
[2016-11-08] MEDS ORDERED: MAALOX MAXIMUM355 M1 PO (14:11)
[2016-11-08] MEDS ORDERED: HUMALOG MI100 UNITS1 SC ×2 (14:12)
[2016-11-08] MEDS ORDERED: GLUCAGON EMERGEN1 MG IM (14:13)
[2016-11-08] MEDS ORDERED: DEX4 GLUCOSE4 GM PO (14:14)
[2016-11-08] MEDS ORDERED: ACETAMINOPHEN650 MG PR (14:15)
[2016-11-08] MEDS ORDERED: FLEET ENEMA133 ML PR (14:15)
[2016-11-08] MEDS ORDERED: BISAC-EVAC10 MG PR (14:15)
[2016-11-08] MEDS ORDERED: BACITRACIN28.4 G2 TP (14:17)
[2016-11-08 14:31] LABS: INR 1.8 INR (0.9-1.1); PROTHROMBIN TIME 21.1 SECONDS (9.0-13.6)
[2016-11-08 14:36] LABS: URINE BILIRUBIN NEGATIVE (NEG); URINE BLOOD NEGATIVE (NEG); URINE GLUCOSE (UA) NEGATIVE (NEG); URINE KETONE NEGATIVE (NEG); URINE LEUKOCYTE ESTERASE NEGATIVE (NEG); URINE NITRITE NEGATIVE (NEG); URINE PROTEIN NEGATIVE (NEG)
[2016-11-08 14:37] LABS: URINE APPEARANCE CLEAR; URINE COLOR YELLOW
[2016-11-08 14:39] LABS: BASO % 0.5 % (0-2); HCT-HEMATOCRIT 23.2 % (34.0-49.0); HGB-HEMOGLOBIN 6.6 gm/dl (12.0-15.5); IMMATURE GRANULOCYTES ABSOLUTE 0.05 tho/cmm (0-0.03); IMMATURE GRANULOCYTES PERCENT 0.6 % (0-0.3); LYMPH % 7.7 % (20-45); LYMPH ABSOLUTE COUNT 0.6 tho/cmm (0.8-4.5); MCH (MEAN CORPUSCULAR HGB) 22.7 pg (28.0-32.0); MCHC MEAN CORPUSCULAR HGB CONC 28.4 % (32.0-36.0); MCV (MEAN CELL VOLUME) 79.7 fl (82.0-96.0); MEAN PLATELET VOLUME 10.5 cmc (9.4-12.4); MONO % 10.5 % (0-12); MONOCYTE ABSOLUTE COUNT 0.8 tho/cmm (0.0-1.2); NEUTROPHIL ABSOLUTE COUNT 6.4 tho/cmm (1.6-8.0); NEUTROPHIL-AUTOMATED 6.4 tho/cmm (1.6-8.0); NEUTROPHILS % 80.7 % (40-80); PLATELET COUNT 217 tho/cmm (150-450); RED BLOOD COUNT 2.91 mil/cmm (4.00-5.20); WHITE BLOOD COUNT 7.9 tho/cmm (4.0-10.0)
[2016-11-08 14:46] LABS: ALBUMIN 2.9 g/dl (3.5-5.0); ALKALINE PHOSPHATASE 76 U/L (33-138); ALT/SGPT 15 U/L (12-78); ANION GAP 18 mmol/L (0-20); AST/SGOT 19 U/L (10-40); BILIRUBIN,TOTAL 0.4 mg/dl (0-1.5); BLOOD UREA NITROGEN 30 mg/dl (6-24); CALCIUM 8.1 mg/dl (8.5-10.5); CARBON DIOXIDE-VENOUS 24 mmol/L (22-32); CHLORIDE 104 mmol/l (96-110); CREATININE 1.36 mg/dl (0.50-1.10); GLUCOSE 176 mg/dL (70-110); POTASSIUM 4.8 mmol/L (3.7-5.1); SODIUM 141 mmol/L (135-145); eGFR VALUE FOR BLACK 43 mL/Min
[2016-11-09 00:16] LABS: HCT-HEMATOCRIT 26.7 % (34.0-49.0); HGB-HEMOGLOBIN 8.2 gm/dl (12.0-15.5); MCV (MEAN CELL VOLUME) 81.4 fl (82.0-96.0); RED CELL DISTRIBUTION WIDTH 17.4 % (12.4-16.4)
[2016-11-09 08:00] LABS: HGB-HEMOGLOBIN 8.7 gm/dl (12.0-15.5); MCV (MEAN CELL VOLUME) 79.8 fl (82.0-96.0); RED CELL DISTRIBUTION WIDTH 17.3 % (12.4-16.4)
[2016-11-09 16:07] LABS: HCT-HEMATOCRIT 26.3 % (34.0-49.0); MCV (MEAN CELL VOLUME) 81.7 fl (82.0-96.0); RED CELL DISTRIBUTION WIDTH 17.4 % (12.4-16.4)
[2016-11-10 11:55] LABS: ABG CO2 ARTERIAL 24 mmol/L (21-27); ARTERIAL BLD GAS O2 SATURATION 91 % (95-98); ARTERIAL BLOOD GAS PCO2 56 mmHg (32-45); ARTERIAL PO2 70 mmHg (70-100); BICARBONATE 22 mmol/L (21-28); BLOOD GAS BASE EXCESS -5 mM/L (-/+3); PH 7.22 Units (7.35-7.45)
[2016-11-10 13:20] LABS: ABG CO2 ARTERIAL 23 mmol/L (21-27); ARTERIAL BLD GAS O2 SATURATION 99 % (95-98); ARTERIAL BLOOD GAS PCO2 46 mmHg (32-45); ARTERIAL PO2 131 mmHg (70-100); BICARBONATE 22 mmol/L (21-28); BLOOD GAS BASE EXCESS -4 mM/L (-/+3); PH 7.29 Units (7.35-7.45)
[2016-11-10 15:21] LABS: ABG CO2 ARTERIAL 23 mmol/L (21-27); ARTERIAL BLD GAS O2 SATURATION 98 % (95-98); ARTERIAL BLOOD GAS PCO2 48 mmHg (32-45); ARTERIAL PO2 97 mmHg (70-100); BICARBONATE 22 mmol/L (21-28); BLOOD GAS BASE EXCESS -4 mM/L (-/+3); PH 7.28 Units (7.35-7.45)
[2016-11-11 06:12] LABS: BASO % 0.5 % (0-2); EOS % 0.2 % (0-7); HGB-HEMOGLOBIN 7.7 gm/dl (12.0-15.5); IMMATURE GRANULOCYTES ABSOLUTE 0.03 tho/cmm (0-0.03); IMMATURE GRANULOCYTES PERCENT 0.7 % (0-0.3); LYMPH % 21.1 % (20-45); LYMPH ABSOLUTE COUNT 0.9 tho/cmm (0.8-4.5); MCH (MEAN CORPUSCULAR HGB) 24.6 pg (28.0-32.0); MCHC MEAN CORPUSCULAR HGB CONC 29.6 % (32.0-36.0); MCV (MEAN CELL VOLUME) 83.1 fl (82.0-96.0); MEAN PLATELET VOLUME 10.6 cmc (9.4-12.4); MONO % 17.4 % (0-12); MONOCYTE ABSOLUTE COUNT 0.7 tho/cmm (0.0-1.2); NEUTROPHIL ABSOLUTE COUNT 2.5 tho/cmm (1.6-8.0); NEUTROPHIL-AUTOMATED 2.5 tho/cmm (1.6-8.0); NEUTROPHILS % 60.1 % (40-80); PLATELET COUNT 125 tho/cmm (150-450); RED BLOOD COUNT 3.13 mil/cmm (4.00-5.20); RED CELL DISTRIBUTION WIDTH 18.5 % (12.4-16.4); WHITE BLOOD COUNT 4.1 tho/cmm (4.0-10.0)
[2016-11-11 06:20] LABS: INR 1.4 INR (0.9-1.1)
[2016-11-11 07:01] LABS: PROTHROMBIN TIME 15.9 SECONDS (9.0-13.6)
[2016-11-12 06:11] LABS: BASO % 0.5 % (0-2); HCT-HEMATOCRIT 24.6 % (34.0-49.0); HGB-HEMOGLOBIN 7.3 gm/dl (12.0-15.5); IMMATURE GRANULOCYTES ABSOLUTE 0.03 tho/cmm (0-0.03); IMMATURE GRANULOCYTES PERCENT 0.8 % (0-0.3); LYMPH % 19.3 % (20-45); LYMPH ABSOLUTE COUNT 0.8 tho/cmm (0.8-4.5); MCH (MEAN CORPUSCULAR HGB) 24.7 pg (28.0-32.0); MCHC MEAN CORPUSCULAR HGB CONC 29.7 % (32.0-36.0); MCV (MEAN CELL VOLUME) 83.4 fl (82.0-96.0); MEAN PLATELET VOLUME 10.3 cmc (9.4-12.4); MONO % 19.3 % (0-12); MONOCYTE ABSOLUTE COUNT 0.8 tho/cmm (0.0-1.2); NEUTROPHIL ABSOLUTE COUNT 2.4 tho/cmm (1.6-8.0); NEUTROPHIL-AUTOMATED 2.4 tho/cmm (1.6-8.0); NEUTROPHILS % 60.1 % (40-80); PLATELET COUNT 114 tho/cmm (150-450); RED BLOOD COUNT 2.95 mil/cmm (4.00-5.20); RED CELL DISTRIBUTION WIDTH 19.3 % (12.4-16.4); WHITE BLOOD COUNT 3.9 tho/cmm (4.0-10.0)
[2016-11-12 06:13] LABS: INR 1.3 INR (0.9-1.1); PROTHROMBIN TIME 15.5 SECONDS (9.0-13.6)
[2016-11-12 06:18] LABS: ANION GAP 11 mmol/L (0-20); BLOOD UREA NITROGEN 12 mg/dl (6-24); CALCIUM 8.1 mg/dl (8.5-10.5); CARBON DIOXIDE-VENOUS 28 mmol/L (22-32); CHLORIDE 108 mmol/l (96-110); CREATININE 0.84 mg/dl (0.50-1.10); GLUCOSE 110 mg/dL (70-110); POTASSIUM 3.6 mmol/L (3.7-5.1); SODIUM 143 mmol/L (135-145); eGFR VALUE FOR BLACK 77 mL/Min
[2016-11-12 12:24] LABS: ARTERIAL BLD GAS O2 SATURATION 92 % (95-98); ARTERIAL BLOOD GAS PCO2 42 mmHg (32-45); BICARBONATE 26 mmol/L (21-28); BLOOD GAS BASE EXCESS 2 mM/L (-/+3)
[2016-11-12 12:26] LABS: ABG CO2 ARTERIAL 28 mmol/L (21-27); ARTERIAL PO2 62 mmHg (70-100); PH 7.41 Units (7.35-7.45)
[2016-11-13 06:40] LABS: ANION GAP 11 mmol/L (0-20); BLOOD UREA NITROGEN 9 mg/dl (6-24); CALCIUM 8.1 mg/dl (8.5-10.5); CARBON DIOXIDE-VENOUS 32 mmol/L (22-32); CHLORIDE 106 mmol/l (96-110); CREATININE 0.85 mg/dl (0.50-1.10); POTASSIUM 3.3 mmol/L (3.7-5.1); SODIUM 146 mmol/L (135-145); eGFR VALUE FOR BLACK 76 mL/Min
[2016-11-13 06:44] LABS: GLUCOSE 40 mg/dL (70-110)
[2016-11-14 06:21] LABS: ANION GAP 10 mmol/L (0-20); BLOOD UREA NITROGEN 10 mg/dl (6-24); CALCIUM 8.1 mg/dl (8.5-10.5); CARBON DIOXIDE-VENOUS 32 mmol/L (22-32); CHLORIDE 108 mmol/l (96-110); CREATININE 0.78 mg/dl (0.50-1.10); MAGNESIUM 2.2 mg/dl (1.8-2.6); POTASSIUM 4.1 mmol/L (3.7-5.1); SODIUM 146 mmol/L (135-145); eGFR VALUE FOR BLACK 84 mL/Min
[2016-11-14 06:24] LABS: GLUCOSE 58 mg/dL (70-110)
[2016-11-16] MEDS ORDERED: IRON325 M3 PO (14:15)
== END 2016-11-16 14:00 | DRG 377 ==
LOC: EDMED 13:47 → EMR2 16:16 → CCU 19:16 → PCUA 11-09 19:00
PROVIDERS: Emergency Medicine; Internal Medicine; Internal Medicine Pulmonary Disease; Specialist; ADMIT Hospitalist
PROC: 30243N1 Transfusion of Nonautologous Red Blood Cells into Central Vein, Percutaneous Approach (ICD-10-PCS; 2016-11-08)
PROC: 05H533Z Insertion of Infusion Device into Right Subclavian Vein, Percutaneous Approach (ICD-10-PCS; 2016-11-09)
PROC: 0DJ08ZZ Inspection of Upper Intestinal Tract, Via Natural or Artificial Opening Endoscopic (ICD-10-PCS; 2016-11-09)
PROC: 0DJD8ZZ Inspection of Lower Intestinal Tract, Via Natural or Artificial Opening Endoscopic (ICD-10-PCS; principal; 2016-11-10)
PROC: 5A09357 Assistance with Respiratory Ventilation, Less than 24 Consecutive Hours, Continuous Positive Airway Pressure (ICD-10-PCS; 2016-11-10)
DX: K57.31 Diverticulosis of large intestine without perforation or abscess with bleeding (principal); J96.21 Acute and chronic respiratory failure with hypoxia; G93.40 Encephalopathy, unspecified; I27.2 Other secondary pulmonary hypertension; D62 Acute posthemorrhagic anemia; E11.22 Type 2 diabetes mellitus with diabetic chronic kidney disease; I13.0 Hypertensive heart and chronic kidney disease with heart failure and stage 1 through stage 4 chronic kidney disease, or unspecified chronic kidney disease; I50.30 Unspecified diastolic (congestive) heart failure; J96.22 Acute and chronic respiratory failure with hypercapnia; E66.2 Morbid (severe) obesity with alveolar hypoventilation; F20.0 Paranoid schizophrenia; R44.3 Hallucinations, unspecified; F03.90 Unspecified dementia, unspecified severity, without behavioral disturbance, psychotic disturbance, mood disturbance, and anxiety; I25.10 Atherosclerotic heart disease of native coronary artery without angina pectoris; I48.2 Chronic atrial fibrillation; Z79.01 Long term (current) use of anticoagulants; E78.5 Hyperlipidemia, unspecified; J44.9 Chronic obstructive pulmonary disease, unspecified; T42.4X5A Adverse effect of benzodiazepines, initial encounter; Z87.11 Personal history of peptic ulcer disease; K59.09 Other constipation; Z79.4 Long term (current) use of insulin; F32.9 Major depressive disorder, single episode, unspecified; Z96.641 Presence of right artificial hip joint; F41.9 Anxiety disorder, unspecified; Z87.891 Personal history of nicotine dependence; K63.89 Other specified diseases of intestine; N18.3 Chronic kidney disease, stage 3 (moderate); M17.10 Unilateral primary osteoarthritis, unspecified knee; Z68.35 Body mass index [BMI] 35.0-35.9, adult
CPT/HCPCS: A9560; C1751; C9113; J1630; J1650; J1815; J1940; J2060; J2405; J7030; P9016; P9612